=== PATIENT | female | born 1960 | race Caucasian/White ===

== ENCOUNTER → 2016-03-05 | Outpatient (CLI) | payer BC ==
--- NOTE | 2016-03-05 15:57 | Diagnostic Imaging Report ---
INDICATION: Screening mammogram. COMPARISON: 03/01/2015, 02/19/2014, 01/30/2013. FAMILY HISTORY: Positive in mother and grandmother. Bilateral digital mammography is performed with computer assisted detection (CAD) software utilization. There are no reported clinical signs and/or symptoms of breast cancer. The breast tissue pattern is composed mostly of dense breast tissue. This does limit sensitivity. The soft tissue density pattern does not show any significant changes when compared to the prior examinations. No architectural distortion, dominant mass, or suspicious microcalcification is identified. IMPRESSION: 1. Negative for malignancy. Followup in one year. 2. Consider MRI screening. ACR BI-RADS Category 1: Negative Result letter will be mailed to the patient. Note: At least 10% of breast cancer is not imaged by mammography. [place] [employer] RECOMMENDATIONS FOR BREAST MRI SCREENING AN ADJUNCT TO MAMMOGRAPHY: *Patients with BRCA1 or BRCA2 mutation. *Patients who have a first degree relative with BRCA1 or BRCA2 mutation, but untested. *Patient's lifetime risk of breast cancer is greater than 20-25% as defined by BRCAPRO or other models that are largely dependent on family history. *History of radiation to the chest between the ages of 10 and 30. *Li-Fraumeni Syndrome, Lexy Syndrome, Rgeiygex-Shtkd-Lfmofazxz Syndrome, first degree relatives or may have one of these syndromes. Insufficient evidence at this time to recommend for or against screening: *Lifetime risk of 15-20%, as defined by BRCAPRO or other models that are largely dependent on family history. *Lobular Carcinoma in Situ (LCIS) or atypical lobular hyperplasia (ALH). *Atypical ductal hyperplasia (ADH) *Heterogeneous or extremely dense breasts on mammography *Women with a personal history of breast cancer, including DCIS Recommend against MRI screening: *Women at < 15% lifetime risk Screening decisions should be made on a case by case basis, as there may be particular factors that support MRI even when family history alone does not predict a risk of approximately 20-25%. Dictated by: Dictated on workstation # [id number]
== END ==
LOC: RAD 08:26
PROVIDERS: ATTEND Family Medicine
DX: Z12.31 Encounter for screening mammogram for malignant neoplasm of breast (principal)